=== PATIENT | female | born 1995 | race African-American/Black ===

== ENCOUNTER 2017-02-11 17:11 | Emergency (ER) | payer OTHER ==
[~2017-02-11] VITALS: Ht 165.1 cm; Wt 66.2 kg
[2017-02-11 17:20] VITALS: BP 127/79
--- NOTE | 2017-02-11 18:26 | ED INFLUENZA/URI COMPLAINT ---
History of Present Illness General Chief Complaint: Upper Respiratory Sx/Fever Stated Complaint: SOB, TRAN, CONGESTIM Source: patient Exam Limitations: no limitations Vital Signs & Intake/Output Vital Signs & Intake/Output Vital Signs Date Time Temp Pulse Resp B/P B/P Pulse O2 O2 Flow FiO2 Mean Ox Delivery Rate 02/11 1942 100 Room Air 02/11 1720 100.1 93 16 127/79 99 Room Air Allergies Coded Allergies: No Known Allergies (02/11/17) Reconcile Medications Biotin (Unknown Strength) CAPSULE (Unknown Dose) PO DAILY SUPPLEMENT ( Reported) Naproxen (Naprosyn) 500 MG TABLET 1 TAB PO BID PAIN/INFLAMMATION (Reported) Norethindrone-E.estradiol-Iron (Microgestin 24 Fe 1 MG-20 Mcg) (Unknown Strength ) TABLET (Unknown Dose) PO DAILY CONTROL (Reported) Tramadol HCl 50 MG TABLET 1-2 TAB PO Q6 PRN pain may cause drowsiness Triage Note: TRIAGE: L SIDED CHEST PAIN RADIATING INTO BACK X3 DAYS, WORSE WITH DEEP INSPIRATION AND COUGHING. PT WAS SIB BY TARAH BAUM FOR OUTPATIENT XRAYS BUT PT FELT LIGHTHEADED "LIKE I AM GOING TO FAINT" DURING XRAY SO SHE CAME TO ED TO R/O PNA. AAOX3. TEMP 100.1 IN TRIAGE AND O2 SAT 99% Triage Nurses Notes Reviewed? yes : No Patient currently breastfeeds: No HPI: Patient is a 21-year-old female presents complaining of left upper chest pain radiates to the left upper back. Symptoms onset on Saturday. Pain is a sharp pain, moderate to severe, worsens with cough, sneezing, deep breath. Patient has been taking Aleve and DayQuil and NyQuil with no improvement. Patient was sent by her primary doctor for an outpatient chest x-ray, was having lightheadedness and dizziness during her x-ray was referred to the emergency department for further evaluation. Patient takes oral contraceptive pills. Positive associated fevers. Patient denies lower extremity pain, lower extremity swelling, cigarette use. Patient also reporting several weeks of right wrist pain. Was diagnosed with tendonitis by her doctor. (BRANDYN CR) Past History Travel History Traveled to [place] past 21 day No Medical History Any Pertinent Medical History? see below for history Neurological: NONE EENT: NONE Cardiovascular: NONE Respiratory: pneumonia Gastrointestinal: NONE Hepatic: NONE Renal: NONE Musculoskeletal: NONE Psychiatric: NONE Endocrine: NONE Blood Disorders: NONE Cancer(s): NONE Surgical History Surgical History: non-contributory Psychosocial History What is your primary language Turkmen Tobacco Use: Never used Family History Hx Contributory? No (BRANDYN CR) Review of Systems Review of Systems Constitutional: Reports: chills, fever, malaise. EENTM: Reports: no symptoms. Respiratory: Reports: cough, short of breath, sputum production. Denies: wheezing. Cardiovascular: Reports: chest pain. GI: Denies: abdominal pain, nausea, vomiting. Genitourinary: Reports: no symptoms. Musculoskeletal: Reports: back pain. Skin: Reports: no symptoms. Neurological/Psychological: Reports: no symptoms. Hematologic/Endocrine: Reports: no symptoms. Immunologic/Allergic: Reports: no symptoms. (BRANDYN CR) Physical Exam Physical Exam General Appearance: well developed/nourished, alert, awake Head: atraumatic, normal appearance Eyes: Bilateral: normal appearance, PERRL, EOMI. Ears, Nose, Throat: normal ENT inspection, moist mucous membrane, hearing grossly normal Neck: normal inspection, supple, full range of motion Respiratory: normal breath sounds, no respiratory distress, lungs clear, mild left upper chest wall tenderness Cardiovascular: regular rate/rhythm, normal peripheral pulses, no appreciable murmur Peripheral Pulses: 2+ radial (R), 2+ radial (L), 2+ dorsalis pedis (R), 2+ dorsalis pedis (L) Gastrointestinal: soft, non-tender Back: normal inspection, normal range of motion Extremities: normal inspection, normal capillary refill, normal range of motion, no edema, pain over the right 1st metacarpal with ulnar deviation of right wrist. no bony tenderness. Neurologic/Psych: no motor/sensory deficits, awake, alert, oriented x 3, normal gait, normal mood/affect Skin: intact, normal color, warm/dry Lymphatic: no anterior cervical abel Core Measures Severe Sepsis Present: No Septic Shock Present: No (BRANDYN CR) Progress Differential Diagnosis: bronchitis, pneumonia, pleurisy, pneumothorax, PE, aortic dissection Plan of Care: Orders Procedure Date/time Status Durable Medical Equipment 02/11 192 Active TROPONIN LEVEL 02/11 183 Complete D-DIMER 02/11 183 Complete COMPREHENSIVE METABOLIC PANEL 02/11 1831 Complete CBC WITHOUT DIFFERENTIAL 02/11 1831 Complete EKG 02/11 171 Active Current Medications Sig/Flory Start time Last Medication Dose Stop Time Status Admin Sodium Chloride 1,000 ML 02/11 1845 CAN (Normal Saline 0.9%) Laboratory Tests 02/11/17 1840: Anion Gap 10, Estimated GFR > 60, BUN/Creatinine Ratio 24.0, Glucose 97, Calcium 9.5, Total Bilirubin 0.5, AST 13 L, ALT 28, Alkaline Phosphatase 37, Troponin I < 0.01, Total Protein 7.7, Albumin 4.3, Globulin 3.4, Albumin/Globulin Ratio 1.3 , D-Dimer < 200, CBC w Diff NO MAN DIFF REQ, RBC 4.45, MCV 82.5, MCH 27.1, RDW 13.4, MPV 8.9, Gran % 56.1, Lymphocytes % 33.9, Monocytes % 6.9, Eosinophils % 2.6, Basophils % 0.5, Absolute Granulocytes 4.2, Absolute Lymphocytes 2.5, Absolute Monocytes 0.5, Absolute Eosinophils 0.2, Absolute Basophils 0, PUBS MCHC 32.9 L 1930: Patient feeling improved. Results's, chest x-ray, EKG discussed with patient. Patient appears stable for discharge outpatient follow-up. Patient has a wrist splint at home for the tendinitis in her right wrist. (ABIMBOLA RASCON,BRANDYN) Diagnostic Imaging: Discussed w/RAD: Radiology Read. Radiology Impression: PATIENT: SUSAN QUINTANA PRESENT AGE: 21 PATIENT ACCOUNT NO: [id number] : 93 LOCATION: LAX ORDERING PHYSICIAN: RUBEN BAUM SERVICE DATE: 02/11/17 EXAM TYPE: RAD - XRY -CHEST XRAY, PA AND LATERAL EXAMINATION: XR CHEST CLINICAL INFORMATION: Left- sided chest pain. Cough. COMPARISON: Chest x-ray 08/20/2015 TECHNIQUE: 2 views of the chest were obtained. FINDINGS: No significant abnormality is noted involving the heart, lungs, mediastinum, bony thorax or soft tissues. IMPRESSION : Normal chest. DICTATED BY: JOSIE SAUCEDO MD DATE/TIME DICTATED:02/11/171722 FEATHER MAKER:WENDY DATE/TIME TRANSCRIBED:02/11/171722 CONFIDENTIAL, DO NOT COPY WITHOUT APPROPRIATE AUTHORIZATION. <Electronically signed in Other Vendor System> SIGNED BY: JOSIE SAUCEDO MD 02/11/17 9260 Initial ED EKG: normal axis, normal intervals, normal p-waves, normal QRS complex, normal sinus rhythm, no ST T wave changes (BRANDYN CR) Departure Departure Time of Disposition: 1933 Disposition: HOME OR SELF CARE Condition: Stable Clinical Impression Primary Impression: Pleurisy Secondary Impressions: Right wrist tendonitis Referrals: RUBEN BAUM (PCP/Family) Additional Instructions: Continue taking the Naproxen as previously directed. Tramadol as directed for pain not controlled with the naproxen. Follow up with your primary doctor this week for recheck and further evaluation. Call in the morning for appointment. Departure Forms: Customer Survey General Discharge Information Prescriptions: Current Visit Scripts Tramadol HCl 1-2 TAB PO Q6 PRN pain #12 TAB may cause drowsiness (BRANDYN CR) PA/FIRE ADJUSTER Co-Sign Statement Statement: ED Attending supervision documentation- [] I saw and evaluated the patient. I have also reviewed all the pertinent lab results and diagnostic results. I agree with the findings and the plan of care as documented in the PA's/FIRE ADJUSTER's documentation. X[] I have reviewed the ED Record and agree with the PA's/FIRE ADJUSTER's documentation. [] Additions or exceptions (if any) to the PAs/FIRE ADJUSTER's note and plan are summarized below: [] (ALEX OCAMPO,JANAY Shelley)
[2017-02-11] MEDS ORDERED: BIOTIN5 M1 PO (18:38)
[2017-02-11] MEDS ORDERED: NAPROSYN500 M1 PO (18:38)
[2017-02-11] MEDS ORDERED: ESTROGEN PO (18:38)
[2017-02-11] MEDS ORDERED: MICROGESTIN 241 EACH PO (18:39)
[2017-02-11 18:47] LABS: ABSOLUTE BASOPHIL COUNT 0 /CUMM (0.0-0.2); ABSOLUTE EOSINOPHIL COUNT 0.2 /CUMM (0.0-0.7); ABSOLUTE GRANULOCYTE CT 4.2 /CUMM (1.4-6.5); ABSOLUTE LYMPH COUNT 2.5 /CUMM (1.2-3.4); ABSOLUTE MONOCYTE COUNT 0.5 /CUMM (0.10-0.60); BASOPHIL % 0.5 % (0.0-2.0); EOSINOPHIL % 2.6 % (0-5); GRANULOCYTE % 56.1 % (42.2-75.2); HEMATOCRIT 36.7 % (37-47); MEAN CORPUSCULAR HGB 27.1 PG (27.0-31.0); MEAN CORPUSCULAR HGB CONC 32.9 G/DL (33.0-37.0); MEAN CORPUSCULAR VOLUME 82.5 FL (81.0-99.0); MEAN PLATELET VOLUME 8.9 FL (7.4-10.4); PLATELET COUNT 239 /CUMM (130-400); RBC DISTRIBUTION WIDTH 13.4 % (11.5-14.5); RED BLOOD CELL CT 4.45 /CUMM (4.20-5.40); WHITE BLOOD CELL COUNT 7.4 /CUMM (4.8-10.8)
[2017-02-11] MEDS ORDERED: TRAMADOL HCL50 M1 PO (19:36)
== END 2017-02-11 19:45 ==
LOC: ERH 17:11
PROVIDERS: Physician Assistant
DX: R09.1 Pleurisy (principal); M77.8 Other enthesopathies, not elsewhere classified; R07.9 Chest pain, unspecified
CPT/HCPCS: 93005; 93010; 96374; J1885